=== PATIENT | male | born 1940 | race Caucasian/White ===

== ENCOUNTER 2021-10-10 02:22 | Day surgery (SDC) | payer MEDICARE, SELFPAY ==
[2021-10-03 10:25] VITALS: BMI 25.9
--- NOTE | 2021-10-03 10:47 | PC.NURSE ---
Report to the Outpatient Waiting Room, entrance under the green pavilion located off [facility], at time __10:00AM on date _10/10/21 . OR Time: __11:00AM . - You and your visitor will be asked a series of questions to screen for COVID 19 for your protection. - A mask is required within the hospital. Preoperative COVID Testing Requirements: PATIENT'S E-MAILING COVID CARD No COVID Test needed if: (proof is required; if not received patient will have Rapid Test prior to entry) - Patient has received COVID Vaccine at least 14 days prior to procedure date or - Patient has positive COVID test result within last 90 days of surgery date. COVID Test needed if above criteria is not met If not COVID vaccinated a COVID test must be conducted within 72 hours of surgery and patient is asked to isolate self from time of testing until procedure. You will go to the [facility] for your COVID testing. The [facility] is located at the corner of [address] [facility]. You will only be called if COVID results are positive and your surgeon may reschedule your elective surgery date. Patients may have LIGHT BREAKFAST MORNING OF SURGERY clear liquids (water, carbonated beverages, clear teas, apple juice) until 3 hours prior to surgery with a maximum of 20 ounces. - No food from midnight until time of surgery - Infants may have breast milk until 4 hours before surgery, infant formula 6 hours prior to surgery. - Children will be allowed to drink immediately following surgery. If applicable, please bring a bottle or sippy cup to assist with drinking. Juice, water, soda, and popsicles are readily available. For infants on formula, please bring formula the day of surgery. Pacifiers are allowed. Take the following medications with a SIP of water the morning of surgery: ____AM MEDS Medications to discontinue per physician HOLD ASPIRIN PER DR QUIÑONES, PT'S CHECKING WITH OFFICE Date to take last dose Please no make-up, nail gibraltarian, hairspray, perfume, deodorant, or body powder the day of surgery. No jewelry (including any body piercings) or valuables the day of surgery, leave them at home. Please take a shower or bath the night before, or the morning of, surgery with an antibacterial soap. Wear comfortable, loose fitting clothing. Children are encouraged to wear pajamas. - Jewelry must be removed prior to entering the operating room. Rings and piercings that are not removed may be cut off. - The hospital will not accept responsibility for valuables. - Please leave all valuables, including medications, at home the day of surgery. If you are going home after surgery, OK TO DRIVE(LOCAL ANESTHESIA) - NO public transportation without another adult. - We recommend that an adult stay with you for 24 hours following discharge. - We also recommend that you do not drive, make important decision, drink alcoholic beverages, or take any drugs that were not prescribed by your health care provider for at least 24 hours after your discharge time. For Pediatric surgeries, we recommend two adults accompany the child home (only one inside the building at this time). One visitor will be allowed to accompany the patient into the hospital. Patients visitor will be instructed to remain with patient at all times or leave the building. We will allow the visitor to come back to the postoperative area when patient is ready. Follow any additional instructions given to you from your surgeon. Telephone instructions given to __WANDY, WIFE and asked if any additional questions and then verbalized understanding. Patient advised to call surgeon office or pre surgery nurse liaison [phone] if any additional questions.
[2021-10-10] VITALS (9 sets, daily range): BP systolic 112–144; BP diastolic 54–87; PULSE 59–68; RESP 16–20; TEMP 36.5; O2SAT 96–99
--- NOTE | 2021-10-10 07:22 | WPDHPUPDATE1 ---
History and Physical Update Update Date/Time: 10/10/21 07:22 History and Physical has been reviewed, including an updated exam of the patient. There are NO changes in the patient's condition. Risks, benefits, and alternatives have been discussed and questions answered. Patient agrees to proceed with procedure.
[2021-10-10] MEDS: BALANCED SALT SOLN OPHTH IRRIG 30 ML BTL LEFT EYE (10:53)
[2021-10-10] MEDS: BACITRACIN OINTMENT 15 GM TUBE 1 APPLIC TOPICAL (10:54)
--- NOTE | 2021-10-10 10:56 | SUR.OPER ---
Frozen section specimen sent with FERNANDEZ Kwon and received in pathology by
--- NOTE | 2021-10-10 12:07 | W.PM.PROC2 ---
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 Patient was taken to the operating room placed supine on the operative table. Time-out was held confirmed. The face was prepped and draped usual fashion. The site was carefully examined again and marked for surgical access. This was widely infiltrated with 1% lidocaine with epinephrine. The specimen was taken deep enough to reach the subcutaneous fat. The most superior tip was marked for 12 o'clock and the specimen sent for frozen section. The diagnosis from pathology was basal cell carcinoma completely excised. The wound margins were undermined on all sides at least 5 mm, but 2 cm under the cheek side. This was to allow advancement of the cheek skin and subcutaneous tissue toward the nose and not distort the nose laterally. A 4-0 Vicryl suture was placed in the periosteum near the piriform aperture and in the superficial fascia of the cheek side of the wound. This stabilized medial advancement of the cheek tissue to approximate the wound. Additional deep 4-0 Vicryl sutures were placed. The skin was then closed with a running 5 0 nylon, no standing cones were removed. Estimated Blood Loss 2 Drains No Packing No Pathology Yes Complications No immediate complications Condition Stable Disposition Same day
== END 2021-10-10 12:20 | disposition home or self-care (01) ==
PROVIDERS: PCP Internal Medicine; Visit Provider Plastic Surgery
PROC: (CPT 11642; principal; 2021-10-10 11:00)
DX: C44.311 Basal cell carcinoma of skin of nose (principal); I10 Essential (primary) hypertension; E11.9 Type 2 diabetes mellitus without complications; Z79.82 Long term (current) use of aspirin
CPT/HCPCS: 11642; 13152; 88305; 88331; 88332; A9270

== ENCOUNTER 2022-01-06 07:47 | Outpatient (CLI) | payer MEDICARE, SELFPAY ==
--- NOTE | 2022-01-14 20:38 | WPDHOMESLEEP ---
Sleep Study - Home Unattended Date of Study: 01/06/22 Ordering Provider: Sami Woodall APRN Interpreting Provider: Anisha Bowen, DO Home Sleep Study Type: Watch PAT Height: 1.78 m Weight: 81.647 kg Body Mass Index: 25.8 Neck Circumference (inches): 18 [place]: 9 Reason for Sleep Study Needs to requalify for CPAP Sleep History The patient is an 81-year-old male who had a sleep study ordered by his primary care physician to requalify per PAP therapy. The patient denies awakening from sleep short of breath. He denies awakening at night with heartburn, belching or. He rarely snores enough that others complain. He denies having trouble sleeping when he has a cold. He denies waking up gasping for air throughout the night. He rarely has breathing problems at night observed by himself or others. He denies sweating excessively at night. He denies having heart palpitations or irregular heartbeats during the night. He occasionally falls asleep during the day. He rarely falls asleep while driving. He denies sleep paralysis, cataplexy and hypnagogic / hypnopompic hallucinations. He denies having nightmares. He occasionally remembers his dreams. He occasionally has thoughts racing through his mind. He rarely feels sad or depressed. He rarely has anxiety. He occasionally has muscular tension. He denies noticing parts of his body jerk. He rarely kicks during the night. He denies having crawling and aching feelings in his legs. He occasionally has leg pain during the night. He denies grinding his teeth during sleep and awakening morning jaw pain. He is frequently bothered by pain during the day but rarely awakened by pain during the night. He frequently wakes up feeling stiff morning. He rarely wakes up with sore achy muscles. He occasionally wakes up with pain in neck spine or other joints. The patient goes to bed at 11:30 p.m. on both weekdays and weekends. It takes him 30 minutes to fall asleep. He wakes up twice throughout the night to urinate. He will fall asleep within 10-15 minutes. He wakes up at 9:30 a.m. on both weekdays and weekends. He gets 8 hours of sleep per night. He currently lives with his . he will drink coffee or tea within 2 hours of bedtime. He does not engage in physical exercise before bedtime. He will read before falling asleep. He will take naps in the afternoon or the evening and they are refreshing. He currently smokes half a pack a cigarettes per day. He will drink 3 cups of caffeinated beverage per day. He will occasionally drink alcohol. He denies recreational drug use. [facility] Past Medical History Medical History HTN (hypertension) Hyperlipidemia Family History Family History Father Family history of colitis Family history of Alzheimer's disease Other Family history of allergic disorder Hypertension Social History Social History Smoking packs per day: 0.75 Smoking cigarettes per day: 15.0 Years smoked: 40 Smoking pack-years: 30.00 Smoking status: Current every day smoker Tobacco type: cigarettes Smoking end date: 07/27/12 Alcohol intake: current Substance use: never Additional living arrangements comments: Spiritual care concerns: No Medications Home Medications Medication Instructions Recorded Confirmed Type aspirin 81 mg tablet 81 mg PO DAILY 10/03/21 10/30/21 History cholecalciferol (vitamin D3) 25 25 mcg PO DAILY 10/03/21 10/30/21 History mcg (1,000 unit) tablet cyanocobalamin (vitamin B-12) 1,000 mcg PO DAILY 10/03/21 10/30/21 History 1,000 mcg tablet diclofenac sodium 75 mg 75 mg PO BID 10/03/21 10/30/21 History tablet,delayed release escitalopram oxalate 20 mg tablet 20 mg PO QAM 10/03/21 10/30/21 History lisinopril 20 mg tablet 20 mg PO QA
[2022-01-14 20:43] VITALS: BMI 25.8
== END 2022-01-13 07:31 | disposition home or self-care (01) ==
LOC: ANHCSM 07:49
PROVIDERS: PCP Internal Medicine; Visit Provider Nurse Practitioner Family
DX: G47.30 Sleep apnea, unspecified (principal)
CPT/HCPCS: 95800

== ENCOUNTER 2023-01-23 17:25 | Emergency (ER) | payer OTHER, MEDICARE, SELFPAY ==
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
[2023-01-23 17:33] VITALS: BP 153/76; PULSE 73; RESP 18; TEMP 36.4; O2SAT 97
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
--- NOTE | 2023-01-23 18:54 | ECG_ITS ---
Measurements Intervals [place] Rate: 69 P: -26 SD: 156 QRS: -34 QRSD: 108 T: 33 QT: 391 QTc: 420 Interpretive Statements SINUS RHYTHM LEFT AXIS DEVIATION INCOMPLETE RIGHT BUNDLE BRANCH BLOCK CONSIDER INFERIOR INFARCT, AGE INDETERMINATE ABNORMAL ECG NO PREVIOUS ECG AVAILABLE FOR COMPARISON Electronically Signed On 01-24-2023 7:26:44 CDT by Emory Moreira D.O.
[2023-01-23] MEDS: ACETAMINOPHEN 500 MG TABLET 1000 MG PO (19:11)
[2023-01-23] MEDS: TETANUS,DIPHTHERIA,AC PERTUSSIS ADULT (0.5 ML) BOOSTRIX IM (19:11)
== END 2023-01-23 21:08 | disposition home or self-care (01) ==
LOC: ANHED 18:57
PROVIDERS: Emergency Provider Emergency Medicine; PCP Internal Medicine
DX: S61.412A Laceration without foreign body of left hand, initial encounter (principal); R07.89 Other chest pain; I10 Essential (primary) hypertension; E78.5 Hyperlipidemia, unspecified; F17.210 Nicotine dependence, cigarettes, uncomplicated; Z23 Encounter for immunization; V43.52XA Car driver injured in collision with other type car in traffic accident, initial encounter
CPT/HCPCS: 71046; 90471; 90715; 93005; 99283; A9270